=== PATIENT | male | born 1985 | race American Indian/Alaskan Native ===

== ENCOUNTER 2016-10-10 20:14 | Emergency (ER) | payer OTHER ==
[2016-10-10 20:20] VITALS: BP 156/107
[2016-10-10] MEDS ORDERED: Lidocaine 2% Viscous Solution 15 ML Cup PO ONE (20:57)
[2016-10-10] MEDS ORDERED: Clindamycin HCl 150 MG Cap PO ONE (20:57)
--- NOTE | 2016-10-10 21:06 | EDM.PDOC ---
ED HPI GENERAL MEDICAL PROBLEM - General Chief Complaint: ENT Problem Stated Complaint: TOOTHACHE Time Seen by Provider: 10/10/16 20:50 Source of Information: Reports: Patient History Limitations: Reports: No Limitations - History of Present Illness INITIAL COMMENTS - FREE TEXT/NARRATIVE: This 31 yo male patient reports to the ED with right lower posterior dental pain. The patient reports his symptoms started 7-8 months ago, but got much worse last night. The patient reports he took Aspirin with little to no symptom relief. Onset: Sudden Onset Date: 10/09/16 Duration: Constant, Getting Worse Location: Reports: Face Quality: Reports: Ache, Sharp Severity: Severe Improves with: Reports: None Worsens with: Reports: None Context: Reports: Activity Treatments DAMAGE ADJUSTER: Reports: Aspirin Right Lower Gums Pain Score (Numeric/FACES): 8 - Related Data Allergies Allergy/AdvReac Type Severity Reaction Status Date / Time No Known Allergies Allergy Verified 10/10/16 20:20 Home Meds: Home Meds . [No Known Home Meds] 04/02/16 [History] Past Medical History Cardiovascular History: Reports: Hypertension Musculoskeletal History: Reports: Fracture Other Musculoskeletal History: left hand knuckle broken, fx Rt. ankle Psychiatric History: Reports: Other (See Below) Other Psychiatric History: anger issues. Social & Family History - Tobacco Use Smoking Status *Q: Current Every Day Smoker Years of Tobacco use: 20 Packs/Tins Daily: 0.5 Second Hand Smoke Exposure: Yes - Caffeine Use Caffeine Use: Reports: Soda - Recreational Drug Use Recreational Drug Use: No ED ROS ENT - Review of Systems Review Of Systems: ROS reveals no pertinent complaints other than HPI. ED EXAM, ENT - Physical Exam Exam: See Below General Appearance: Alert, WD/WN, Moderate Distress Ears: Normal External Exam, Normal Canal, Hearing Grossly Normal, Normal TMs Nose: Normal Inspection, Normal Mucousa, No Blood Mouth/Throat: Dental Abcess (right lower posterior), Dental Pain, Dental Tenderness Head: Atraumatic, Normocephalic Neck: Normal Inspection, Supple, Non-Tender, Full Range of Motion Respiratory/Chest: No Respiratory Distress, Lungs Clear, Normal Breath Sounds, No Accessory Muscle Use, Chest Non-Tender Cardiovascular: Normal Peripheral Pulses, Regular Rate, Rhythm, No Edema, No Gallop, No JVD, No Murmur, No Rub GI/Abdominal: Normal Bowel Sounds, Soft, Non-Tender, No Organomegaly, No Distention, No Abnormal Bruit, No Mass (Male) Exam: Deferred Rectal (Males) Exam: Deferred Back: Normal Inspection Extremities: Normal Inspection, Normal Range of Motion, Non-Tender, No Pedal Edema, Normal Capillary Refill Neurological: Alert, Oriented, CN II-XII Intact, Normal Cognition, Normal Gait, Normal Reflexes, No Motor/Sensory Deficits Psychiatric: Normal Affect, Normal Mood Skin: Warm, Dry, Intact, Normal Color, No Rash Course - Vital Signs Last Recorded V/S: Last Vital Signs Temp 36.2 C 10/10/16 20:16 Pulse 89 10/10/16 20:16 Resp 18 10/10/16 20:16 BP 156/107 H 10/10/16 20:16 Pulse Ox 96 10/10/16 20:16 - Orders/Labs/Meds Meds: Medications Discontinued Medications Generic Name Dose Route Start Last Admin Trade Name Freq PRN Reason Stop Dose Admin Clindamycin HCl 300 mg 10/10/16 20:57 Cleocin PO 10/10/16 20:58 ONETIME ONE Lidocaine HCl 15 ml 10/10/16 20:57 Xylocaine 2% Viscous PO 10/10/16 20:58 ONETIME ONE Departure - Departure Time of Disposition: 21:02 Disposition: Home, Self-Care 01 Condition: Fair Clinical Impression: Dental abscess, Dental caries extending into dentin - Discharge Information Instructions: Dental Abscess, Crzh-[id number], Dental Caries, [id number] Forms: ED Department Discharge Care Plan Goals: The patient was advised of the examination results during the visit. The patient was given an oral dose of Clindamycin (300 mg) and Viscous Lidocaine (2% ) while in the ED. The patient was discharged with a script for Clindamycin ( 300 mg) #40 to take 1 by mouth 4 times per day for 10 days and Viscous Lidocaine (2%) #100 ml to apply 5 mL to a cotton swab then applied to the area of pain every 4 hours. The patient was advised to follow-up with his dentist this week for continued evaluation and management.
== END 2016-10-10 21:38 | disposition home or self-care (01) ==
LOC: DL.ED 20:14
DX: K04.7 Periapical abscess without sinus (principal); K02.62 Dental caries on smooth surface penetrating into dentin; I10 Essential (primary) hypertension; F17.210 Nicotine dependence, cigarettes, uncomplicated
CPT/HCPCS: 99282; A9270; 99283

== ENCOUNTER 2016-11-21 18:37 | Emergency (ER) | payer SELFPAY ==
[2016-11-21 18:43] VITALS: BP 158/83
--- NOTE | 2016-11-21 19:04 | EDM.PDOC ---
ED HPI GENERAL MEDICAL PROBLEM - General Chief Complaint: Lower Extremity Injury/Pain Stated Complaint: ANKLE PAIN DOWN BUTTOCKS AREA AND FOOT [id number] Time Seen by Provider: 11/21/16 19:02 Source of Information: Reports: Patient History Limitations: Reports: No Limitations - History of Present Illness INITIAL COMMENTS - FREE TEXT/NARRATIVE: twisted right ankle 3 days ago, no BM past 2 days. Right Feet Pain Score (Numeric/FACES): 7 - Related Data Allergies Allergy/AdvReac Type Severity Reaction Status Date / Time No Known Allergies Allergy Verified 11/21/16 18:48 Home Meds: Home Meds . [No Known Home Meds] 04/02/16 [History] Past Medical History - Past Health History Medical/Surgical History: Denies Medical/Surgical History Cardiovascular History: Reports: Hypertension Musculoskeletal History: Reports: Fracture Other Musculoskeletal History: left hand knuckle broken, fx Rt. ankle Psychiatric History: Reports: Other (See Below) Other Psychiatric History: anger issues. Social & Family History - Tobacco Use Smoking Status *Q: Current Every Day Smoker Years of Tobacco use: 20 Packs/Tins Daily: 10 Second Hand Smoke Exposure: Yes - Caffeine Use Caffeine Use: Reports: Soda, Tea - Alcohol Use Date of Last Drink: 03/16/16 - Recreational Drug Use Recreational Drug Use: No Review of Systems - Review of Systems Review Of Systems: ROS reveals no pertinent complaints other than HPI. ED EXAM, GENERAL - Physical Exam Exam: See Below Exam Limited By: No Limitations General Appearance: Alert, WD/WN, No Apparent Distress Ears: Hearing Grossly Normal Throat/Mouth: Normal Voice, No Airway Compromise Head: Atraumatic Neck: Non-Tender, Full Range of Motion Respiratory/Chest: No Respiratory Distress Cardiovascular: Regular Rate, Rhythm GI/Abdominal: Soft, Non-Tender, Other (hyper BS). No: Distended, Guarding, Rigid, Rebound Rectal (Males) Exam: Perirectal Abscess, Other (firm non fluctuant) Extremities: Other (right ankle tender mildly swollen lateral> without old ORIF , NV wnl, gait limited to pain) Neurological: Alert Psychiatric: Flat Affect Skin Exam: Warm, Dry, Normal Color Lymphatic: No Adenopathy Course - Vital Signs Last Recorded V/S: Last Vital Signs Temp 36.6 C 11/21/16 18:42 Pulse 106 H 11/21/16 18:42 Resp 16 11/21/16 18:42 BP 158/83 H 11/21/16 18:42 Pulse Ox 96 11/21/16 18:42 - Orders/Labs/Meds Orders: Active Orders 24 hr Category Date Time Status Clindamycin HCl [Cleocin] Med 11/21/16 20:26 Once 150 mg PO ONETIME ONE traMADol [Ultram] Med 11/21/16 20:26 Once 50 mg PO ONETIME ONE - Re-Assessments/Exams Free Text/Narrative Re-Assessment/Exam: 11/21/16 20:27 results discussed with pt. Departure - Departure Time of Disposition: 20:28 Disposition: Home, Self-Care 01 Condition: Good Clinical Impression: Perirectal abscess, Colicky periumbilical abdominal pain Mild ankle sprain Qualifiers: Encounter type: initial encounter Laterality: right Qualified Code(s): S93.401A - Sprain of unspecified ligament of right ankle, initial encounter - Discharge Information Instructions: Perirectal Abscess Forms: ED Department Discharge Additional Instructions: 1) hot sitz bath 2) hot compress to area 3) no solid foods next 48 hours 4) avoid bending lifting straining 5) see clinic for abscess check Tuesday, sooner if feels worse. rx given; clindamycin 150mg qid x 40 tramadol 50mg bid x 12 - My Orders Last 24 Hours: My Active Orders 11/21/16 20:26 Clindamycin HCl [Cleocin] 150 mg PO ONETIME ONE traMADol [Ultram] 50 mg PO ONETIME ONE - Assessment/Plan Last 24 Hours: My Active Orders 11/21/16 20:26 Clindamycin HCl [Cleocin] 150 mg PO ONETIME ONE traMADol [Ultram] 50 mg PO ONETIME ONE
[2016-11-21] MEDS ORDERED: Clindamycin HCl 150 MG Cap PO ONE (20:26)
[2016-11-21] MEDS ORDERED: traMADol 50 MG Tab PO ONE (20:26)
== END 2016-11-21 20:40 | disposition home or self-care (01) ==
LOC: DL.ED 18:37
DX: S93.401A Sprain of unspecified ligament of right ankle, initial encounter (principal); K61.1 Rectal abscess; R10.84 Generalized abdominal pain; R10.33 Periumbilical pain; I10 Essential (primary) hypertension; F17.210 Nicotine dependence, cigarettes, uncomplicated; X50.1XXA Overexertion from prolonged static or awkward postures, initial encounter
CPT/HCPCS: 73600; 74000; 99283; A9270

== ENCOUNTER 2017-06-09 14:41 | Emergency (ER) | payer OTHER ==
[2017-06-09] MEDS ORDERED: cefTRIAXone 250 MG, Lidocaine 1% 0.9 ML IM ONE ×2 (16:04)
[2017-06-09 16:05] VITALS: BP 149/96
[2017-06-09] MEDS ORDERED: Azithromycin 250 MG Tab PO ONE (16:05)
--- NOTE | 2017-06-09 16:18 | EDM.PDOC ---
Scribed by Torie Elkins 06/09/17 [id number] for Josiah De La Torre MD ED HPI GENERAL MEDICAL PROBLEM - General Chief Complaint: Skin Complaint Stated Complaint: [id number] SOMETHING DOWN BY LEGS COMING BACK Time Seen by Provider: 06/09/17 15:25 Source of Information: Reports: Patient, RN, RN Notes Reviewed History Limitations: Reports: No Limitations - History of Present Illness INITIAL COMMENTS - FREE TEXT/NARRATIVE: Patient presents to ER with complaint of skin infection or abscess at the perineal area that began yesterday. Denies drainage. Patient also requests STD screening due to potential exposure. Duration: Getting Worse Location: Reports: Other (perineal) Severity: Moderate Improves with: Reports: None Worsens with: Reports: None Associated Symptoms: Reports: No Other Symptoms - Related Data Allergies Allergy/AdvReac Type Severity Reaction Status Date / Time No Known Allergies Allergy Verified 06/09/17 15:44 Home Meds: Home Meds . [No Known Home Meds] 04/02/16 [History] Past Medical History - Past Health History Medical/Surgical History: Denies Medical/Surgical History Cardiovascular History: Reports: Hypertension Musculoskeletal History: Reports: Fracture Other Musculoskeletal History: left hand knuckle broken, fx Rt. ankle Psychiatric History: Reports: Other (See Below) Other Psychiatric History: anger issues. Social & Family History - Family History Family Medical History: Noncontributory - Tobacco Use Smoking Status *Q: Current Every Day Smoker Years of Tobacco use: 20 Packs/Tins Daily: 10 Second Hand Smoke Exposure: Yes - Caffeine Use Caffeine Use: Reports: Soda, Tea - Recreational Drug Use Recreational Drug Use: No ED ROS GENERAL - Review of Systems Review Of Systems: ROS reveals no pertinent complaints other than HPI. ED EXAM, SKIN/RASH Exam: See Below Exam Limited By: No Limitations General Appearance: Alert, WD/WN, No Apparent Distress Head: Atraumatic, Normocephalic Neck: Normal Inspection, Supple, Non-Tender, Full Range of Motion Respiratory/Chest: No Respiratory Distress Cardiovascular: Regular Rate, Rhythm GI/Abdominal: Normal Bowel Sounds, Soft, Non-Tender, No Organomegaly, No Distention, No Abnormal Bruit, No Mass (Male) Exam: No Hernia, Normal Inspection, Normal Prostate, Circumcised Rectal (Males) Exam: Deferred Back Exam: Normal Inspection, Full Range of Motion, NT Extremities: Normal Inspection, Normal Range of Motion, Non-Tender, No Pedal Edema, Normal Capillary Refill Neurological: Alert, Oriented, CN II-XII Intact, Normal Cognition, Normal Gait, Normal Reflexes, No Motor/Sensory Deficits Psychiatric: Normal Affect, Normal Mood Skin: Other (midline perineal skin with 0.8cm oval tender, erythematous, non- fluctuant area with no drainage or peripheral erythema.) Lymphatic: No Adenopathy Course - Vital Signs Last Recorded V/S: Last Vital Signs Temp 36.7 C 06/09/17 15:45 Pulse 82 06/09/17 15:45 Resp 16 06/09/17 15:45 BP 149/96 H 06/09/17 15:45 Pulse Ox 95 06/09/17 15:45 - Orders/Labs/Meds Orders: Active Orders 24 hr Category Date Time Status CHLAMYDIA AND GONORRHEA BY TMA Stat Lab 06/09/17 16:05 Received UA W/MICROSCOPIC [URIN] Stat Lab 06/09/17 16:05 Ordered Meds: Medications Discontinued Medications Generic Name Dose Route Start Last Admin Trade Name Duaneq PRN Reason Stop Dose Admin Azithromycin 1,000 mg 06/09/17 16:05 Zithromax PO 06/09/17 16:06 ONETIME ONE Ceftriaxone Sodium 250 mg/ 0 mg 06/09/17 16:04 Lidocaine HCl 0.9 ml IM 06/09/17 16:05 ONETIME ONE Departure - Departure Time of Disposition: 16:06 Disposition: Home, Self-Care 01 Condition: Good Clinical Impression: Furuncle of perineum, STD exposure - Discharge Information Instructions: Sexually Transmitted Disease, [id number], Skin Abscess, Easy-to -Read Forms: ED Department Discharge Additional Instructions: RX: Doxycycline 100mg. RX: Clindamycin 300mg. Follow up in clinic for recheck in 4 to 5 days. - My Orders Last 24 Hours: My Active Orders 06/09/17 16:05 CHLAMYDIA AND GONORRHEA BY TMA Stat UA W/MICROSCOPIC [URIN] Stat - Assessment/Plan Last 24 Hours: My Active Orders 06/09/17 16:05 CHLAMYDIA AND GONORRHEA BY TMA Stat UA W/MICROSCOPIC [URIN] Stat I have read and agree with the documentation that has been completed regarding this visit. By signing this record, I attest that the documentation was completed in my physical presence and is an accurate record of the encounter.
== END 2017-06-09 16:28 | disposition home or self-care (01) ==
LOC: DL.ED 14:41
DX: L02.225 Furuncle of perineum (principal); I10 Essential (primary) hypertension; F17.210 Nicotine dependence, cigarettes, uncomplicated; Z20.2 Contact with and (suspected) exposure to infections with a predominantly sexual mode of transmission
CPT/HCPCS: 81001; 87491; 87591; 96374; 99283; A9270; J0696

== ENCOUNTER 2019-07-26 15:13 | Emergency (ER) | payer SELFPAY ==
[2019-07-26] MEDS ORDERED: Bacitracin Oint 1 GM U/D Packet TOP ONE (15:40)
[2019-07-26] MEDS ORDERED: Lidocaine 1% 30 ML SDV INJECT ONE (15:40)
[2019-07-26 16:00] VITALS: BP 156/98; PULSE 138
--- NOTE | 2019-07-26 16:33 | EDM.PDOC ---
ED HPI GENERAL MEDICAL PROBLEM - General Chief Complaint: Laceration Stated Complaint: CUT LEFT HAND Time Seen by Provider: 07/26/19 15:30 Source of Information: Reports: Patient, RN, RN Notes Reviewed History Limitations: Reports: No Limitations - History of Present Illness INITIAL COMMENTS - FREE TEXT/NARRATIVE: Patient presents to ER with complaint of lacerations to the left dorsal hand. Patient states he was having a running race with someone and fell on the gravel landing on his hand and cutting the left middle finger, left third MIP is avulsed, and left fifth MIP is avulsed. Patient states he is up-to-date on his tetanus shot. Denies numbness or tingling to the fingers. Onset: Today, Sudden Location: Reports: Upper Extremity, Left - Related Data Allergies Allergy/AdvReac Type Severity Reaction Status Date / Time No Known Allergies Allergy Verified 12/17/17 12:27 Home Meds: Home Meds . [No Known Home Meds] 12/17/17 [History] Past Medical History - Past Health History Medical/Surgical History: Denies Medical/Surgical History HEENT History: Reports: None Cardiovascular History: Reports: Hypertension Respiratory History: Reports: None Gastrointestinal History: Reports: None Genitourinary History: Reports: None Musculoskeletal History: Reports: Fracture Other Musculoskeletal History: left hand knuckle broken, fx Rt. ankle Neurological History: Reports: None Psychiatric History: Reports: Other (See Below) Other Psychiatric History: anger issues. Endocrine/Metabolic History: Reports: None Hematologic History: Reports: None Immunologic History: Reports: None Oncologic (Cancer) History: Reports: None Dermatologic History: Reports: None Social & Family History - Family History Family Medical History: Noncontributory - Tobacco Use Smoking Status *Q: Current Every Day Smoker Years of Tobacco use: 23 Packs/Tins Daily: 0.5 - Caffeine Use Caffeine Use: Reports: Tea - Recreational Drug Use Recreational Drug Use: No ED ROS GENERAL - Review of Systems Review Of Systems: Comprehensive ROS is negative, except as noted in HPI. ED EXAM, SKIN/RASH Exam: See Below Exam Limited By: No Limitations General Appearance: Alert, WD/WN, No Apparent Distress Eye Exam: Bilateral Eye: EOMI, Normal Inspection Ears: Normal External Exam, Hearing Grossly Normal Nose: Normal Inspection Throat/Mouth: Normal Inspection, Normal Voice, No Airway Compromise Head: Atraumatic, Normocephalic Neck: Normal Inspection, Supple, Non-Tender, Full Range of Motion Respiratory/Chest: No Respiratory Distress, Lungs Clear, Normal Breath Sounds, No Accessory Muscle Use, Chest Non-Tender Cardiovascular: Normal Peripheral Pulses, Regular Rate, Rhythm, No Edema, No Gallop, No JVD, No Murmur, No Rub Peripheral Pulses: 2+: Radial (L), Radial (R) GI/Abdominal: Normal Bowel Sounds, Soft, Non-Tender, No Organomegaly, No Distention, No Abnormal Bruit, No Mass (Male) Exam: Deferred Rectal (Males) Exam: Deferred Back Exam: Normal Inspection, Full Range of Motion, NT Extremities: Normal Inspection, Normal Range of Motion, Non-Tender, No Pedal Edema, Normal Capillary Refill Neurological: Alert, Oriented, CN II-XII Intact, Normal Cognition, Normal Gait, Normal Reflexes, No Motor/Sensory Deficits Psychiatric: Normal Affect, Normal Mood Skin: Warm, Dry, Normal Color, No Rash, Wound/Incision Location, Skin: Upper Extremity, Left (Avulsed skin to the left 3rd PIP dorsal and 5th PIP dorsal, laceration to the dorsal MIP 3cm linear) Lymphatic: No Adenopathy ED SKIN PROCEDURES - Laceration/Wound Repair Left Middle Midline Dorsal Digit - 3rd (Middle) Appearance: Subcutaneous (Left 3rd MIP) Distal NVT: Neuro & Vascular Intact Anesthetic Type: Local Local Anesthesia - Lidocaine (Xylocaine): 1% Plain Local Anesthetic Volume: 4cc Skin Prep: Chlorhexidine (Hibiciens) Exploration/Debridement/Repair: Wound Explored, In a Bloodless Field, Explored to Base Closed with: Sutures Lac/Wound length In cm: 3 Suture Size: 4-0 # of Sutures: 4 Suture Type: Nylon, Interrupted Drain Placement: No Sterile Dressing Applied: Nurse Tetanus Status Addressed: Yes Complications: No Left Dorsal Hand Appearance: Subcutaneous Distal NVT: Neuro & Vascular Intact Anesthetic Type: Local Local Anesthesia - Lidocaine (Xylocaine): 1% Plain Local Anesthetic Volume: 1cc Skin Prep: Chlorhexidine (Hibiciens) Exploration/Debridement/Repair: Wound Explored, In a Bloodless Field, Explored to Base, No Foreign Material Found Closed with: Sutures Lac/Wound length In cm: 1 (1cm and 1cm V shape) # of Sutures: 5 (Loose) Suture Type: Nylon, Interrupted Drain Placement: No Sterile Dressing Applied: Nurse Tetanus Status Addressed: Yes Complications: No Left Lateral Dorsal Hand Appearance: Subcutaneous Distal NVT: Neuro & Vascular Intact Anesthetic Type: Local Local Anesthesia - Lidocaine (Xylocaine): 1% Plain Local Anesthetic Volume: 1cc Skin Prep: Chlorhexidine (Hibiciens) Exploration/Debridement/Repair: Wound Explored, In a Bloodless Field, Explored to Base, Minimal Debridement (small flap of skin holding on minimally), No Foreign Material Found Closed with: Sutures Lac/Wound length In cm: 2 Suture Size: 4-0 # of Sutures: 3 (loose) Suture Type: Nylon, Interrupted Drain Placement: No Sterile Dressing Applied: Nurse Tetanus Status Addressed: Yes Complications: No Course - Vital Signs Last Recorded V/S: Last Vital Signs Temp 98.6 F 07/26/19 15:16 Pulse 138 H 07/26/19 15:16 Resp 18 07/26/19 15:16 BP 156/98 H 07/26/19 15:16 Pulse Ox 94 L 07/26/19 15:16 - Orders/Labs/Meds Meds: Medications Discontinued Medications Generic Name Dose Route Start Last Admin Trade Name Melvin PRN Reason Stop Dose Admin Bacitracin 1 dose 07/26/19 15:40 07/26/19 15:47 Bacitracin Oint 1 Gm TOP 07/26/19 15:41 1 dose ONETIME ONE Administration Lidocaine HCl 30 ml 07/26/19 15:40 07/26/19 15:47 Xylocaine-Mpf 1% INJECT 07/26/19 15:41 30 ml ONETIME ONE Administration Departure - Departure Time of Disposition: 16:30 Disposition: Home, Self-Care 01 Condition: Good Clinical Impression: Puncture wound - injury, Laceration Avulsion of skin of finger Qualifiers: Encounter type: initial encounter Qualified Code(s): S61.209A - Unspecified open wound of unspecified finger without damage to nail, initial encounter - Discharge Information *PRESCRIPTION DRUG MONITORING PROGRAM REVIEWED*: No *COPY OF PRESCRIPTION DRUG MONITORING REPORT IN PATIENT ARIANNA: No Instructions: Skin Tear, [id number], Laceration Care, Adult, [id number], Sutures, Nathaniel, or Adhesive Wound Closure, [id number], Sutured Wound Care, [id number] Referrals: PCP,None [Primary Care Provider] - Forms: ED Department Discharge Additional Instructions: Monitor for signs of infection (redness, swelling, drainage, fever or chills) Return to the ER or follow up with your primary care facility for any further problems Follow up with your primary care facility in 7-10 days to have the sutures removed May use Tylenol and/or Ibuprofen as directed for pain RX: Cephalexin Sepsis Event Note - Evaluation Sepsis Screening Result: No Definite Risk - Focused Exam Vital Signs: Vital Signs Temp Pulse Resp BP Pulse Ox 07/26/19 15:16 98.6 F 138 H 18 156/98 H 94 L Date Exam was Performed: 07/26/19 Time Exam was Performed: 17:16
== END 2019-07-26 16:41 | disposition home or self-care (01) ==
LOC: DL.ED 15:13
DX: S61.213A Laceration without foreign body of left middle finger without damage to nail, initial encounter (principal); S61.412A Laceration without foreign body of left hand, initial encounter; I10 Essential (primary) hypertension; F17.210 Nicotine dependence, cigarettes, uncomplicated; W26.8XXA Contact with other sharp object(s), not elsewhere classified, initial encounter; Y93.02 Activity, running
CPT/HCPCS: 12002; 99282; J2001

== ENCOUNTER 2021-07-13 18:56 | Emergency (ER) | payer SELFPAY ==
[2021-07-13 18:42] LABS: AMPHETAMINES,URINE NEGATIVE (NEGATIVE); BARBITURATES,URINE NEGATIVE (NEGATIVE); BENZODIAZEPINE,URINE NEGATIVE (NEGATIVE); MDMA (ECSTASY), URINE NEGATIVE (NEGATIVE); METHADONE,URINE NEGATIVE (NEGATIVE); METHAMPHETAMINES,URINE NEGATIVE (NEGATIVE); OPIATES,URINE NEGATIVE (NEGATIVE); OXYCODONE,URINE NEGATIVE (NEGATIVE); PHENCYCLIDINE,URINE NEGATIVE (NEGATIVE); TCA,URINE NEGATIVE (NEGATIVE)
[2021-07-13 18:46] LABS: ANION GAP 17.3 mEq/L (7-13); CHLORIDE,CL 104 mmol/L (98-107); SODIUM,NA 142 mmol/L (136-145)
== END 2021-07-13 19:33 | disposition home or self-care (01) ==
LOC: DL.ED 18:56
DX: Z02.89 Encounter for other administrative examinations (principal); I10 Essential (primary) hypertension; Z72.0 Tobacco use
CPT/HCPCS: 36415; 80053; 80305-QW; 80307; 85025; 99282; 99283

== ENCOUNTER 2022-07-19 07:58 | Emergency (ER) | payer MEDICAID ==
[2022-07-19] MEDS ORDERED: Ketorolac 30 MG/ML SDV IM ONE (08:31)
[2022-07-19] MEDS ORDERED: Orphenadrine 60 MG/2 ML Inj IM ONE (08:31)
[2022-07-19 08:59] VITALS: BP 142/90; PULSE 89
[2022-07-19 09:21] LABS: APPEARANCE,URINE CLEAR (CLEAR); BILIRUBIN,URINE NEGATIVE (NEGATIVE); COLOR,URINE YELLOW (YELLOW); GLUCOSE,URINE NEGATIVE (NEGATIVE); KETONES,URINE NEGATIVE (NEGATIVE); LEUKOCYTE ESTERASE,URINE NEGATIVE (NEGATIVE); NITRITE,URINE NEGATIVE (NEGATIVE); OCCULT BLOOD,URINE TRACE-INTACT (NEGATIVE); PH,URINE 5.5 (5.0-9.0); PROTEIN,URINE NEGATIVE (NEGATIVE); UROBILINOGEN,URINE 0.2 mg/dL (0.2-1.0)
[2022-07-19 09:55] LABS: AMORPHOUS SEDIMENT,URINE FEW /HPF (NOT SEEN); BACTERIA,URINE FEW /HPF (0-FEW/HPF); EPITHELIAL CELLS,URINE NOT SEEN /HPF (NOT SEEN); MUCUS,URINE RARE /LPF (NOT SEEN); WBC,URINE 0-5 /HPF (0-5/HPF)
== END 2022-07-19 11:40 | disposition home or self-care (01) ==
LOC: DL.ED 07:58
DX: S39.012A Strain of muscle, fascia and tendon of lower back, initial encounter (principal); M62.830 Muscle spasm of back; I10 Essential (primary) hypertension; F17.210 Nicotine dependence, cigarettes, uncomplicated; X50.9XXA Other and unspecified overexertion or strenuous movements or postures, initial encounter
CPT/HCPCS: 72100; 74176; 81001; 96372; 99284; J1885; J2360

== ENCOUNTER 2022-09-26 16:25 | Emergency (ER) | payer MEDICAID ==
[2022-09-26] MEDS ORDERED: Lidocaine 1% with EPINEPHrine 1:100,000 20 ML MDV INJECT ONE (17:00)
[2022-09-26] MEDS ORDERED: Sulfamethoxazole/Trimethoprim 800-160 MG Tab PO ONE (17:50)
[2022-09-26 18:08] VITALS: BP 122/87; PULSE 98
== END 2022-09-26 18:06 | disposition home or self-care (01) ==
LOC: DL.ED 16:25
DX: L02.214 Cutaneous abscess of groin (principal); F17.210 Nicotine dependence, cigarettes, uncomplicated; I10 Essential (primary) hypertension
CPT/HCPCS: 10061; 87070; 99282; 99283; A9270; J3490

== ENCOUNTER 2024-08-22 13:48 | Emergency (ER) | payer MEDICAID ==
[2024-08-22 13:57] VITALS: BP 135/101; PULSE 87
[2024-08-22] MEDS ORDERED: Ketorolac 30 MG/ML SDV IM ONE (14:01)
== END 2024-08-22 14:20 | disposition left against medical advice (07) ==
LOC: DL.ED 13:48
DX: S83.91XA Sprain of unspecified site of right knee, initial encounter (principal); I10 Essential (primary) hypertension; X50.0XXA Overexertion from strenuous movement or load, initial encounter
CPT/HCPCS: 99282; 99283